=== PATIENT | female | born 1945 | race Two or more races ===

== ENCOUNTER 2017-09-10 09:05 | Outpatient (CLI) | payer OTHER ==
[~2017-09-10 09:05] MED LIST: LISINOPRIL10 MG; METFORMIN HCL500 MG
== END 2017-09-10 09:23 | disposition home or self-care (01) ==
LOC: LAB 09:05
DX: D46.20 Refractory anemia with excess of blasts, unspecified (principal); K75.4 Autoimmune hepatitis; Z85.3 Personal history of malignant neoplasm of breast; I10 Essential (primary) hypertension; M19.90 Unspecified osteoarthritis, unspecified site; M81.0 Age-related osteoporosis without current pathological fracture; D69.59 Other secondary thrombocytopenia; D64.89 Other specified anemias; Z12.11 Encounter for screening for malignant neoplasm of colon

== ENCOUNTER 2017-10-15 09:04 | Outpatient (CLI) | payer OTHER | END 2017-10-15 09:08 | disposition home or self-care (01) | LOC: RAD 09:04 | DX: M15.0 Primary generalized (osteo)arthritis (principal) ==

== ENCOUNTER → 2017-10-28 09:02 | Outpatient (CLI) | payer OTHER | END | disposition home or self-care (01) | LOC: LAB 09:02 | DX: K75.4 Autoimmune hepatitis (principal) ==

== ENCOUNTER 2018-01-26 08:46 | Outpatient (CLI) | payer OTHER | END 2018-01-26 08:52 | disposition home or self-care (01) | LOC: LAB 08:46 | DX: K75.4 Autoimmune hepatitis (principal) ==

== ENCOUNTER 2018-03-31 08:47 | Outpatient (CLI) | payer OTHER | END 2018-03-31 08:58 | disposition home or self-care (01) | LOC: LAB 08:47 | DX: I10 Essential (primary) hypertension (principal); E11.9 Type 2 diabetes mellitus without complications; E55.9 Vitamin D deficiency, unspecified; R00.2 Palpitations; R42 Dizziness and giddiness ==

== ENCOUNTER 2018-04-08 11:03 | Outpatient (CLI) | payer OTHER | END 2018-04-08 13:00 | disposition home or self-care (01) | LOC: NUCLEAR 11:03 | DX: M81.0 Age-related osteoporosis without current pathological fracture (principal) ==

== ENCOUNTER 2018-04-28 09:13 | Outpatient (CLI) | payer OTHER | END 2018-04-28 09:27 | disposition home or self-care (01) | LOC: MRI 09:13 | DX: M75.82 Other shoulder lesions, left shoulder (principal) | CPT/HCPCS: 73221 ==

== ENCOUNTER → 2018-04-30 | Outpatient (CLI) | payer OTHER | END | disposition home or self-care (01) | LOC: NUCLEAR 10:00 | DX: M79.622 Pain in left upper arm (principal); M79.602 Pain in left arm; M79.89 Other specified soft tissue disorders; E11.51 Type 2 diabetes mellitus with diabetic peripheral angiopathy without gangrene; K75.4 Autoimmune hepatitis; R17 Unspecified jaundice; I87.2 Venous insufficiency (chronic) (peripheral); M16.11 Unilateral primary osteoarthritis, right hip; D46.9 Myelodysplastic syndrome, unspecified; I11.9 Hypertensive heart disease without heart failure; I73.9 Peripheral vascular disease, unspecified; M15.0 Primary generalized (osteo)arthritis; M81.0 Age-related osteoporosis without current pathological fracture; E78.5 Hyperlipidemia, unspecified ==

== ENCOUNTER 2018-05-03 15:26 | Outpatient (CLI) | payer OTHER | END 2018-05-03 16:00 | disposition home or self-care (01) | LOC: NUCLEAR 15:26 | DX: M79.622 Pain in left upper arm (principal); I73.9 Peripheral vascular disease, unspecified; M79.602 Pain in left arm; M79.89 Other specified soft tissue disorders; M81.8 Other osteoporosis without current pathological fracture; E11.51 Type 2 diabetes mellitus with diabetic peripheral angiopathy without gangrene; K75.4 Autoimmune hepatitis; R17 Unspecified jaundice; I87.2 Venous insufficiency (chronic) (peripheral); M16.11 Unilateral primary osteoarthritis, right hip; D46.9 Myelodysplastic syndrome, unspecified; I11.9 Hypertensive heart disease without heart failure; E11.59 Type 2 diabetes mellitus with other circulatory complications; M15.0 Primary generalized (osteo)arthritis; M81.0 Age-related osteoporosis without current pathological fracture; E78.5 Hyperlipidemia, unspecified ==

== ENCOUNTER 2018-05-17 09:10 | Outpatient (CLI) | payer OTHER | END 2018-05-17 09:20 | disposition home or self-care (01) | LOC: LAB 09:10 | DX: M75.110 Incomplete rotator cuff tear or rupture of unspecified shoulder, not specified as traumatic (principal); M79.622 Pain in left upper arm; M79.602 Pain in left arm; M79.89 Other specified soft tissue disorders; M81.8 Other osteoporosis without current pathological fracture; E11.51 Type 2 diabetes mellitus with diabetic peripheral angiopathy without gangrene; K75.4 Autoimmune hepatitis; R17 Unspecified jaundice; I87.2 Venous insufficiency (chronic) (peripheral); M16.11 Unilateral primary osteoarthritis, right hip; D46.9 Myelodysplastic syndrome, unspecified; I11.9 Hypertensive heart disease without heart failure; E11.59 Type 2 diabetes mellitus with other circulatory complications; I73.89 Other specified peripheral vascular diseases; M15.0 Primary generalized (osteo)arthritis; E78.4 Other hyperlipidemia ==

== ENCOUNTER → 2018-07-28 10:10 | Outpatient (CLI) | payer OTHER | END | disposition home or self-care (01) | LOC: LAB 10:10 | DX: M06.09 Rheumatoid arthritis without rheumatoid factor, multiple sites (principal); D64.89 Other specified anemias; I10 Essential (primary) hypertension; M32.8 Other forms of systemic lupus erythematosus; E78.49 Other hyperlipidemia ==

== ENCOUNTER 2018-09-24 08:59 | Outpatient (CLI) | payer OTHER | END 2018-09-24 09:55 | disposition home or self-care (01) | LOC: LAB 08:59 | DX: E11.65 Type 2 diabetes mellitus with hyperglycemia (principal) ==

== ENCOUNTER → 2018-09-24 | Outpatient (CLI) | payer OTHER | END | disposition home or self-care (01) | LOC: NUCLEAR 09:50 | DX: I83.813 Varicose veins of bilateral lower extremities with pain (principal); I73.89 Other specified peripheral vascular diseases; M79.89 Other specified soft tissue disorders; M81.8 Other osteoporosis without current pathological fracture; E11.51 Type 2 diabetes mellitus with diabetic peripheral angiopathy without gangrene; K75.4 Autoimmune hepatitis; I87.2 Venous insufficiency (chronic) (peripheral); M16.11 Unilateral primary osteoarthritis, right hip; M81.0 Age-related osteoporosis without current pathological fracture; E78.5 Hyperlipidemia, unspecified ==

== ENCOUNTER 2018-11-02 08:36 | Outpatient (CLI) | payer OTHER | END 2018-11-02 08:42 | disposition home or self-care (01) | LOC: SONOGRAMA 08:36 | DX: K75.4 Autoimmune hepatitis (principal) ==

== ENCOUNTER 2018-11-02 10:16 | Outpatient (CLI) | payer OTHER | END 2018-11-02 15:00 | disposition home or self-care (01) | LOC: LAB 10:16 | DX: K75.4 Autoimmune hepatitis (principal) ==

== ENCOUNTER 2018-12-27 09:24 | Outpatient (CLI) | payer OTHER | END 2018-12-27 17:00 | disposition home or self-care (01) | LOC: RAD 09:24 | DX: M17.0 Bilateral primary osteoarthritis of knee (principal) ==

== ENCOUNTER 2019-03-04 09:17 | Outpatient (CLI) | payer OTHER | END 2019-03-04 09:21 | disposition home or self-care (01) | LOC: SONOGRAMA 09:17 → MAMO-SONO 09:45 | DX: M75.81 Other shoulder lesions, right shoulder (principal); M75.82 Other shoulder lesions, left shoulder ==

== ENCOUNTER 2019-06-21 07:58 | Outpatient (CLI) | payer OTHER | END 2019-06-21 08:02 | disposition home or self-care (01) | LOC: TOM 07:58 | DX: D50.8 Other iron deficiency anemias (principal) | CPT/HCPCS: 74177; Q9965 ==

== ENCOUNTER 2019-09-04 13:40 | Inpatient (IN) | payer OTHER ==
[~2019-09-04] VITALS: Ht 160 cm; Wt 59.0 kg
--- NOTE | 2019-09-04 14:08 | NUR ---
PTE REFIERE DOLOR DE PECHO Y FRAN ACIDEZ SE REALIZA EKG EL CUAL SE PRESENTA A DR GUZMAN Y BRUNA REFIERE PACIENTE SEA EVALUADA EN ARAEA DE JOSE GUADALUPE PAIN
[2019-09-04] MEDS ORDERED: PANTOPRAZOLE SO40 MG (14:11)
--- NOTE | 2019-09-04 15:38 | NUR ---
PACIENTE ALERTA Y ORIENTADA POR [employer] ESFERAS. SE ORIENTA A PACIENTE SOBRE PROCEDIMEINTO Y TX, REFIERE ENTENDER. EXTRAE MUESTRAS DE LABORATORIO CON MEDIDAS ASEPTICAS Y ADMINISTRA MEDICAMENTOS VIKY ORDEN MEDICA.
--- NOTE | 2019-09-04 17:19 | NUR ---
SE VIV TUBOS PILOTOS PARA 3 UNIDADES DE PRBC'S FRACCIONADAS. SE LLAMA A BANCO DE YVETTE Y SE NTOIFICA A MR. BHAVIN ARCHER PARA RECOGIDO DEL MISMO. PACIENTE FIRMA HOJA DE CONSENTIMIENTO DE TRANSFUSION DE YVETTE.
[2019-09-09] MEDS ORDERED: INTEGRA PLUS C1 EACH PO (16:50)
[2019-09-09] MEDS ORDERED: Neurin-Sl Tablet Sl SL (16:50)
== END 2019-09-09 17:32 | disposition home or self-care (01) | DRG 378 ==
LOC: ER 13:40 → SEC-K 20:45 → MEDJ 20:45
PROVIDERS: ADMIT Student in an Organized Health Care Education/Training Program
PROC: 30233N1 Transfusion of Nonautologous Red Blood Cells into Peripheral Vein, Percutaneous Approach (ICD-10-PCS; 2019-09-05)
PROC: CD171ZZ Planar Nuclear Medicine Imaging of Gastrointestinal Tract using Technetium 99m (Tc-99m) (ICD-10-PCS; principal; 2019-09-09)
DX: K62.5 Hemorrhage of anus and rectum (principal); D62 Acute posthemorrhagic anemia; I10 Essential (primary) hypertension; R31.0 Gross hematuria; E11.9 Type 2 diabetes mellitus without complications; Z79.4 Long term (current) use of insulin

== ENCOUNTER 2019-10-26 08:49 | Outpatient (CLI) | payer OTHER ==
[~2019-10-26 08:49] MED LIST changes: +INTEGRA PLUS C1 EACH PO; +Neurin-Sl Tablet Sl SL; +PANTOPRAZOLE SO40 MG
== END 2019-10-26 08:59 | disposition home or self-care (01) ==
LOC: RAD 08:49
DX: T14.90XD Injury, unspecified, subsequent encounter (principal); L97.929 Non-pressure chronic ulcer of unspecified part of left lower leg with unspecified severity

== ENCOUNTER 2020-09-11 11:48 | Outpatient (CLI) | payer OTHER | END 2020-09-11 11:51 | disposition home or self-care (01) | LOC: NUCLEAR 11:48 | PROVIDERS: ATTEND Internal Medicine Rheumatology | DX: M81.0 Age-related osteoporosis without current pathological fracture (principal) ==

== ENCOUNTER 2020-10-19 10:29 | Outpatient (CLI) | payer OTHER | END 2020-10-19 10:37 | disposition home or self-care (01) | LOC: RAD 10:29 | PROVIDERS: ATTEND Internal Medicine | DX: M51.37 Other intervertebral disc degeneration, lumbosacral region (principal); M43.8X4 Other specified deforming dorsopathies, thoracic region; M54.2 Cervicalgia; M40.202 Unspecified kyphosis, cervical region; M54.5 Low back pain; M81.0 Age-related osteoporosis without current pathological fracture ==

== ENCOUNTER → 2021-01-02 | Outpatient (CLI) | payer OTHER | END | disposition home or self-care (01) | LOC: MAMO-SONO 08:15 → SONOGRAMA 08:30 | PROVIDERS: ATTEND Internal Medicine Gastroenterology | DX: R10.84 Generalized abdominal pain (principal) ==

== ENCOUNTER 2021-07-08 09:39 | Outpatient (CLI) | payer OTHER | END 2021-07-08 09:47 | disposition home or self-care (01) | LOC: MAMO-SONO 09:39 | PROVIDERS: ATTEND General Practice | DX: R92.1 Mammographic calcification found on diagnostic imaging of breast (principal); N64.59 Other signs and symptoms in breast; Z85.3 Personal history of malignant neoplasm of breast; Z12.31 Encounter for screening mammogram for malignant neoplasm of breast ==

== ENCOUNTER 2021-07-12 09:09 | Outpatient (CLI) | payer OTHER | END 2021-07-12 09:15 | disposition home or self-care (01) | LOC: SONOGRAMA 09:09 | PROVIDERS: ATTEND General Practice | DX: N64.89 Other specified disorders of breast (principal); Z85.3 Personal history of malignant neoplasm of breast ==

== ENCOUNTER 2021-11-04 09:40 | Outpatient (CLI) | payer OTHER | END 2021-11-04 09:44 | disposition home or self-care (01) | LOC: SONOGRAMA 09:40 | PROVIDERS: ATTEND Internal Medicine Gastroenterology | DX: M15.0 Primary generalized (osteo)arthritis (principal); M75.81 Other shoulder lesions, right shoulder; M75.82 Other shoulder lesions, left shoulder; R10.84 Generalized abdominal pain; K74.60 Unspecified cirrhosis of liver ==

== ENCOUNTER 2021-12-27 08:36 | Outpatient (CLI) | payer OTHER | END 2021-12-27 08:40 | disposition home or self-care (01) | LOC: TOM 08:36 | PROVIDERS: ATTEND Internal Medicine Gastroenterology | DX: K74.60 Unspecified cirrhosis of liver (principal); R93.2 Abnormal findings on diagnostic imaging of liver and biliary tract; R50.9 Fever, unspecified; R16.0 Hepatomegaly, not elsewhere classified | CPT/HCPCS: 74160; Q9965 ==

== ENCOUNTER 2022-02-05 13:57 | Emergency (ER) | payer OTHER ==
[~2022-02-05] VITALS: Ht 142.2 cm; Wt 58.1 kg
[2022-02-05] MEDS ORDERED: DAFLONEX-XL 11300 MG PO (14:17)
[2022-02-05] MEDS ORDERED: MILLIPRED5 MG PO (14:17)
== END 2022-02-05 19:37 | disposition home or self-care (01) ==
LOC: ER 13:57
DX: S40.011A Contusion of right shoulder, initial encounter (principal); S70.01XA Contusion of right hip, initial encounter; W18.39XA Other fall on same level, initial encounter; Y93.E1 Activity, personal bathing and showering; Y92.012 Bathroom of single-family (private) house as the place of occurrence of the external cause; I10 Essential (primary) hypertension; E11.9 Type 2 diabetes mellitus without complications; Z79.84 Long term (current) use of oral hypoglycemic drugs

== ENCOUNTER 2022-03-23 12:39 | Emergency (ER) | payer OTHER ==
[~2022-03-23] VITALS: Ht 142.2 cm; Wt 55.8 kg
[~2022-03-23 12:39] MED LIST changes: +DAFLONEX-XL 11300 MG PO; +MILLIPRED5 MG PO
[2022-03-23] MEDS ORDERED: TELMISARTAN-HC1 EAC1 PO (13:08)
== END 2022-03-23 18:04 | disposition home or self-care (01) ==
LOC: ER 12:39
DX: R60.0 Localized edema (principal); K74.60 Unspecified cirrhosis of liver; I10 Essential (primary) hypertension; E11.9 Type 2 diabetes mellitus without complications; Z79.84 Long term (current) use of oral hypoglycemic drugs